=== PATIENT | female | born 1980 | race Caucasian/White ===

== ENCOUNTER → 2020-08-19 | Outpatient (CLI) | payer OTHER ==
--- NOTE | 2020-08-19 20:37 | CONS ---
CONSULTATION DATE OF SERVICE: 08/19/2020 This 39-year-old lady has [facility] for snoring, restless leg symptoms and constant movements during sleep. HISTORY OF PRESENT ILLNESS/SLEEP-WAKE EVALUATION: Patient's usual sleep schedule on weekdays is from 11 or 12 midnight until 6 or 7 a.m. and on weekends until 8 or 9 a.m. No problems with falling asleep, although she has a TV in the bedroom. She sleeps on the side position. She snores loudly and wakes up from sleep tired and has difficulties concentrating during the day. Her [place] Sleepiness Scale is 7. The patient also has constant movements during her sleep. The patient has a positive history of sleepwalking in childhood. Usually she does not take naps. PAST MEDICAL HISTORY: Positive for asthma, acid reflux. PAST SURGICAL HISTORY: Cholecystectomy, , appendectomy. MEDICATIONS: Albuterol on very rare occasional situations related to asthma. FAMILY HISTORY: Hypertension, fibromyalgia, snoring, diabetes, restless legs. REVIEW OF SYSTEMS: Loud snoring, multiple movements during sleep. PHYSICAL EXAMINATION: GENERAL: A pleasant 39-year-old lady without distress. VITAL SIGNS: BP 131/81, HR 97, RR 15, height 5 feet 6 inches, weight 237, BMI 38.2, temperature 99.1, oxygen saturation at room air 99%. HEENT: PERRLA, EOMI. Evaluation of oropharynx showed tongue protrudes midline. Low position of soft palate. NECK: Supple. No JVD. Thyroid is not palpable. Wide neck; 17 inches in circumference. LUNGS: Clear to percussion and to auscultation. Good air exchange. No wheezing or rhonchi. HEART: S1, S2 regular. No murmurs, gallops or rubs. ABDOMEN: Soft and nontender. Bowel sounds are present. No organomegaly appreciated. EXTREMITIES: No clubbing or cyanosis. ARTIST REPRESENTATIVE: Awake, alert, and oriented X3. Cranial nerves 2 to 7 intact. There is no fasciculation or atrophy. noted. No focal deficits observed. IMPRESSION: 1. Constant movements during sleep; possibly periodic limb movements. 2. Snoring in severe range, wide neck, low position of soft palate; possible obstructive sleep apnea-hypopnea syndrome. 3. Obesity; BMI 38.2. 4. Asthma. 5. History of acid reflux. 6. Status post cholecystectomy. 7. Status post . 8. Status post appendectomy. PLAN: 1. Polysomnography for evaluation of patient's breathing during sleep and also to check patient's movements during sleep. 2. CPAP/BiPAP titration if sleep study confirms obstructive sleep apnea-hypopnea syndrome. 3. Preferable position during sleep on the side. 4. No driving if patient feels any sleepiness. 5. I will see patient for follow up visit to explain results of testing and following plan. Thank you very much for referring this patient for consultation. Sincerely, Wade Hill MD, PhD, FAASM Diplomat of [employer] H[facility]ice Team Lead of [facility] MMODL / MYRAN: [id number] /
== END | disposition home or self-care (01) ==
LOC: SLEEP 16:36
PROVIDERS: ATTEND Internal Medicine
DX: R06.83 Snoring (principal); E66.9 Obesity, unspecified; Z68.38 Body mass index [BMI] 38.0-38.9, adult; Z90.49 Acquired absence of other specified parts of digestive tract; Z98.890 Other specified postprocedural states; J45.909 Unspecified asthma, uncomplicated; Z99.89 Dependence on other enabling machines and devices

== ENCOUNTER → 2023-06-04 | Outpatient (CLI) | payer OTHER ==
--- NOTE | 2023-06-04 10:13 | MM ---
Reason for Exam: Screening (asymptomatic). Baseline mammogram. Patient History: Menarche at age 13. First Full-Term at age 17. Patient has history of breast feeding. Mother had ovarian cancer, age 25. Last menstrual period: 05/31/2023 Risk Values: Tara 5 year model risk: 0.5%. NCI Lifetime model risk: 7.2%. Prior Study Comparison: Patient's first Mammogram. Tissue Density: There are scattered fibroglandular densities. Findings: Analyzed By CAD. There is no suspicious group of microcalcifications or suspicious mass in either breast. Benign calcifications within the left breast. Overall Assessment: Benign, BI-RAD 2 Management: Screening Mammogram of both breasts in 1 year. A clinical breast exam by your physician is recommended on an annual basis and results should be correlated with mammographic findings. Note on Tara scores and lifetime risk: 1. A Tara score greater than 3% is considered moderate risk. If this is the case, consider specialist referral to assess eligibility for a risk reducing agent. If overall lifetime risk for the development of breast cancer is 20% or higher, the patient may qualify for future screening with alternating mammogram and breast MRI. Electronically signed and approved by: Edwin Martinez D.O.
== END | disposition home or self-care (01) ==
LOC: RADMAMWWP 08:46
PROVIDERS: ATTEND Family Medicine
DX: Z12.31 Encounter for screening mammogram for malignant neoplasm of breast (principal)
CPT/HCPCS: 77067